=== PATIENT | male | born 1945 | race Caucasian/White ===

== ENCOUNTER → 2017-04-06 | Outpatient (CLI) | payer OTHER ==
[~2017-04-06] MED LIST: ADVIR; ALBUTEROL17 GM; ALBUTEROL17 GM INH; AMOXIL500 M2 PO; CEPHALEXIN500 M1 PO; CLOTRIMAZOLE; DEX PO; DUREZOL5 ML OD; FLEXERIL PO; HYDRO PO; ILEVRO1.7 ML OD; KEFLEX250 MG/51 PO; LEVOTHYROXINE75 MCG PO; LORTAB 10 MG-3473 ML PO; MELOXICAM15 MG PO; NAPROXEN PO; NASAL MOIST45 ML NS; NO MEDICATIONS; PANTOPRAZOLE SO40 MG PO; PEPCID AC20 M2 PEG; PREDNISONE PO; PROAIR HFA8.5 GM; PT DENIES; SALAGEN PO; SYSTANE 0.3-0.415 ML OS; VALTREX500 MG PEG; VIBRAMYCIN100 M1 PO; VITAMIN D PO; ZITHROMAX PO; [UNRECOGNIZED DRUG - OTHER] PO; [UNRECOGNIZED DRUG - OTHER] PO
--- NOTE | ~2017-04-06 | CT55 ---
[facility] A Service of [facility] RADIOLOGY TEXT RESULTS PATIENT: ALEXANDRA DUARTE LOCATION: [facility] : 49 UNIT #: [id number] AGE: [address]: JESUS ROSAS SEX: M ORDER DR: [id number] [facility] [address] [place], [place] [address] [id number] O MR#: [id number] [facility] #: [id number] NAME: ALEXANDRA DUARTE. : 1945 SEX: M STUDY DATE/TIME: 04/06/2017 8:58 UNIT: [facility] ROOM: STUDY DESCRIPTION: CT Chest W Con Attending Physician: Jesus Rosas M.D. Referring Physician: Jesus Rosas M.D. Primary Care Physician: Patrick Luo M.D. MEDICAL IMAGING REPORT This report is preliminary unless electronic signature is present EXAM CT chest with contrast date: 04/06/2017 HISTORY Throat cancer. Observation metastatic disease. Restaging. History of radiation therapy and chemotherapy completed March 2015. COPD. COMPARISON CT chest with contrast 04/08/2016. PROCEDURE 5 mm axial images through the chest after IV contrast administration. Sagittal and coronal reformatted images were obtained. This CT exam was performed with one or more of the following radiation dose reduction techniques: automatic exposure control, adjustment of mA and/or kV according to patient size, and iterative reconstruction. FINDINGS Advanced emphysematous changes are present. Biapical parenchymal scarring has a very similar appearance to the 04/08/2016 examination. This scarring may be related to history of neck radiation therapy. No suspicious pulmonary nodules or masses are identified. There is mild linear scarring anteromedially in the right upper lobe adjacent to the mediastinum. There is patchy alveolar disease within the left greater than right bilateral lower lobes which is a new finding since 04/08/2016. Fluid is seen layering dependently within the lower mid to lower thoracic esophagus and proximal mainstem bronchi. No evidence of bronchial mucus plugging. No pathologically enlarged lymph nodes are seen within the chest. No pericardial effusion or pleural effusion. Mild coronary artery calcifications are present. Normal caliber of the thoracic aorta. Unremarkable appearance of the imaged thyroid gland. Included portions of the upper abdominal organs have a normal appearance. No suspicious STS. [facility] A Service of [facility] RADIOLOGY TEXT RESULTS PATIENT: ALEXANDRA DUARTE [id number] : 49 UNIT #: [id number] AGE: [address]: JESUS ROSAS SEX: M ORDER DR: osteolytic or osteoblastic abnormalities are identified. IMPRESSION 1. There is no convincing evidence of disease recurrence or metastatic disease in the chest in this patient with history of throat cancer. 2. There is new patchy bilateral lower lobe airspace disease in the extreme costophrenic angles, left greater than right. Correlate clinically for pneumonia. Sequelae of aspiration could also be considered, given the presence of layering fluid within the trachea and proximal mainstem bronchi. 3. Severe emphysema. 4. 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 5. Mild coronary artery calcifications. Correlate with cardiac history. Dictated by... Abbie Bojorquez M.D. THIS IS AN ELECTRONICALLY VERIFIED REPORT Abbie Bojorquez M.D. at 04/08/2017 7:14 AM Saurabh TD: 04/06/2017 12:42 JOB #: [id number] MEDICAL IMAGING REPORT Page 1 of 1 COPY
--- NOTE | ~2017-04-06 | CT114 ---
[facility] A Service of [facility] RADIOLOGY TEXT RESULTS PATIENT: ALEXANDRA DUARTE LOCATION: [facility] : 49 UNIT #: [id number] AGE: [address]: JESUS ROSAS SEX: M ORDER DR: [id number] [facility] [address] [place], [place] [address] [id number] O MR#: [id number] Acc #: [id number] NAME: ALEXANDRA DUARTE : 1945 SEX: M STUDY DATE/TIME: 04/06/2017 8:58 UNIT: [facility] ROOM: STUDY DESCRIPTION: CT Soft Tissue Neck W Cont Attending Physician: Jesus Rosas M.D. Referring Physician: Jesus Rosas M.D. Primary Care Physician: Patrick Luo M.D. MEDICAL IMAGING REPORT This report is preliminary unless electronic signature is present EXAM Soft tissue neck CT with contrast date of study 04/08/2016 PROCEDURE Axial contrast-enhanced soft tissue neck CT with multiplanar reformats. This CT exam was performed with one or more of the following radiation dose reduction techniques: automatic exposure control, adjustment of mA and/or kV according to patient size, and iterative reconstruction. HISTORY History of tonsillar cancer, routine follow up. No new symptoms. FINDINGS The left tonsillar mass seen on the earlier exam is, as on the most recent prior study, no longer identifiable. Prominent cervical lymph nodes seen on older prior exams, are, as on the most recent prior study, no longer identifiable. The vascular structures appear normal except for slight plaque without evidence of significant stenosis at the left carotid bifurcations. No new mass or mass effect is seen. The larynx is symmetric on these nondetailed imaging. The upper mediastinum is unremarkable. The lung apices show emphysematous changes, but no suspicious nodule. There are spinal degenerative changes, but there is no bone erosion or destruction. IMPRESSION Stable exam since 04/08/2016. No evidence of residual or recurrent adenopathy or new mass or other new abnormality. Dictated by... Eric Rivera M.D. [facility] A Service of [facility] RADIOLOGY TEXT RESULTS PATIENT: ALEXANDRA DUARTE LOCATION: [facility] : 49 UNIT #: [id number] AGE: [address]: JESUS ROSAS SEX: M ORDER DR: THIS IS AN ELECTRONICALLY VERIFIED REPORT Eric Rivera M.D. at 04/11/2017 3:26 PM REYNALDO/lavell TD: 04/06/2017 14:17 JOB #: [id number] MEDICAL IMAGING REPORT Page 1 of 1 COPY
[2017-04-06 08:50] LABS: POC - CREATININE 0.88 mg/dL (0.64-1.27); POC - GFR >60.0 mL/min (>60)
== END | disposition home or self-care (01) ==
LOC: CCAT 08:04
PROVIDERS: Internal Medicine
DX: Z08 Encounter for follow-up examination after completed treatment for malignant neoplasm (principal); J43.9 Emphysema, unspecified; J84.10 Pulmonary fibrosis, unspecified; I25.10 Atherosclerotic heart disease of native coronary artery without angina pectoris; J98.4 Other disorders of lung; Z92.3 Personal history of irradiation; Z85.89 Personal history of malignant neoplasm of other organs and systems
CPT/HCPCS: 70491; 71260; 82565; Q9967